=== PATIENT | male | born 1970 | race Caucasian/White ===

== ENCOUNTER 2019-12-26 09:09 | Outpatient (CLI) | payer OTHER, SELFPAY ==
--- NOTE | 2019-12-26 09:30 | USCV_ITS ---
Gaudencio Oneal Age: 49 Gender: M : 1970 Exam Date: 12/26/2019 09:24 Ordering Phys: Al Maria MD ([email or web address]) Technologist: Elva Jiang [place] [facility] [place]: Ascending AA BP: / HR: 48 Rhythm: Sinus Technical Quality: Adequate MEASUREMENTS (Male / Female) Normal Values 2D ECHO LV Diastolic Diameter PLAX 5.2 cm 4.2 - 5.9 / 3.9 - 5.3 cm LV Systolic Diameter PLAX 3.4 cm LV Chamber Size 4.3 cm IVS Diastolic Thickness 1.6 cm 0.6 - 1.0 / 0.6 - 0.9 cm IVS Systolic Thickness 1.9 cm LVPW Diastolic Thickness 1.1 cm 0.6 - 1.0 / 0.6 - 0.9 cm LVPW Systolic Thickness 2.1 cm RV Chamber Size 2.9 cm LVOT Diameter 2.1 cm LV Ejection Fraction 2D Teich 63.4 % LV Ejection Fraction MOD 2C 63.7 % LV Ejection Fraction 2C AL 63.9 % LA Diameter 4.9 cm LA Width 3.4 cm LA Height 4.5 cm RA Width 4.1 cm RA Height 4.4 cm Aorta at Sinotubular Diameter 3.9 cm M-MODE LV Diastolic Diameter MM 7.2 cm 4.2 - 5.9 / 3.9 - 5.3 cm LV Systolic Diameter MM 4.7 cm LV Ejection Fraction MM Teich 62.1 % IVS Diastolic Thickness MM 1.0 cm 0.6 - 1.0 / 0.6 - 0.9 cm IVS Systolic Thickness MM 1.8 cm LVPW Diastolic Thickness MM 1.4 cm 0.6 - 1.0 / 0.6 - 0.9 cm LVPW Systolic Thickness MM 2.1 cm RV Diastolic Diameter MM 1.7 cm Aortic Annulus Diameter 3.7 cm LA Ao Ratio MM 1.3 DOPPLER AV Peak Velocity 160.0 cm/s LVOT Peak Velocity 146.0 cm/s AV Area Cont Eq vti 3.5 cm squared AV Area Cont Eq pk 3.1 cm squared MV Area PHT 2.8 cm squared Mitral E to A Ratio 3.1 MV E' Velocity 13.0 cm/s Mitral E to MV E' Ratio 8.3 Mitral E to LV E' Lateral Ratio 6.9 Mitral E to LV E' Septal Ratio 10.5 TR Peak Velocity 278.5 cm/s TR Peak Gradient 31.0 mmHg TR Mean Velocity 200.1 cm/s TR Mean Gradient 17.4 mmHg TR Velocity Time Integral 87.5 cm TV Peak E Velocity 91.0 cm/s Right Atrial Pressure 8.0 mmHg Pulmonary Artery Systolic Pressu 39.0 mmHg PV Peak Velocity 63.0 cm/s RV Acceleration Time 0.2 s RV Ejection Time 0.4 s RV AcT/ET 0.5 FINDINGS Left Ventricle Normal left ventricular size, systolic function and wall thickness, with no regional wall motion abnormalities. Grade I/IV diastolic dysfunction (abnormal relaxation filling pattern), normal to mildly elevated filling pressures. Left ventricular ejection fraction is estimated at 60%. Right Ventricle Normal right ventricular size and systolic function. Mild pulmonary hypertension, RVSP 39 mmHg. Right Atrium Mildly increased right atrial size. Left Atrium Mildly increased left atrial size. Mitral Valve Structurally normal mitral valve. Mild mitral valve regurgitation. Aortic Valve Structurally normal trileaflet aortic valve. No aortic valve stenosis. [id number] aortic valve regurgitation. Tricuspid Valve Structurally normal tricuspid valve. Trace to mild tricuspid valve regurgitation. Pulmonic Valve Pulmonic valve not well visualized. Mild pulmonary valve regurgitation. Pericardium Normal pericardium without effusion. Aorta Ascending aorta 41.7 cm CONCLUSIONS Normal left ventricular size, systolic function and wall thickness, with no regional wall motion abnormalities. Grade I/IV diastolic dysfunction (abnormal relaxation filling pattern), normal to mildly elevated filling pressures. Left ventricular ejection fraction is estimated at 60%. Normal right ventricular size and systolic function. Mild pulmonary hypertension, RVSP 39 mmHg. Mildly increased right atrial size. Mildly increased left atrial size. Structurally normal trileaflet aortic valve. No aortic valve stenosis. [id number] aortic valve regurgitation. Dr. Al Maria MD (Electronically Signed) Final Date: 27 December 2019 08:26 S
== END 2019-12-26 09:10 | disposition home or self-care (01) ==
PROVIDERS: Family Provider Family Medicine; PCP Family Medicine; Visit Provider Internal Medicine Cardiovascular Disease
DX: I35.1 Nonrheumatic aortic (valve) insufficiency (principal); I27.20 Pulmonary hypertension, unspecified
CPT/HCPCS: 93306

== ENCOUNTER 2020-07-01 12:19 | Outpatient (CLI) | payer OTHER, SELFPAY ==
--- NOTE | 2020-07-01 12:45 | USCV_ITS ---
Gaudencio Oneal Age: 50 Gender: M : 1970 Exam Date: 07/01/2020 13:10 Ordering Phys: Al Maria MD ([email or web address]) Technologist: Primo Peck [place] [facility] [place] Indication: AI AAA OF ARCH BP: 134 / 88 HR: 57 Rhythm: Sinus Technical Quality: Good MEASUREMENTS (Male / Female) Normal Values 2D ECHO LV Diastolic Diameter PLAX 5.9 cm 4.2 - 5.9 / 3.9 - 5.3 cm LV Systolic Diameter PLAX 3.4 cm IVS Diastolic Thickness 1.2 cm 0.6 - 1.0 / 0.6 - 0.9 cm IVS Systolic Thickness 1.5 cm LVPW Diastolic Thickness 0.8 cm 0.6 - 1.0 / 0.6 - 0.9 cm LVPW Systolic Thickness 1.5 cm LVOT Diameter 2.0 cm LV Ejection Fraction 2D Teich 73.4 % LV Ejection Fraction MOD 2C 63.2 % LV Ejection Fraction 2C AL 62.6 % LA Diameter 4.3 cm LA Width 4.6 cm LA Height 6.0 cm RA Width 4.1 cm RA Height 5.5 cm Aorta at Sinotubular Diameter 1.3 cm M-MODE Aortic Annulus Diameter 4.7 cm LA Ao Ratio MM 0.9 DOPPLER AV Peak Velocity 155.0 cm/s LVOT Peak Velocity 125.0 cm/s AV Area Cont Eq vti 2.4 cm squared AV Area Cont Eq pk 2.5 cm squared MV Area PHT 5.0 cm squared Mitral E to A Ratio 1.3 MV E' Velocity 78.0 cm/s Mitral E to LV E' Septal Ratio 10.1 TR Peak Velocity 258.7 cm/s TR Peak Gradient 26.8 mmHg Right Atrial Pressure 3.0 mmHg Pulmonary Artery Systolic Pressu 29.8 mmHg FINDINGS Left Ventricle Normal left ventricular cavity size. Normal left ventricular systolic function. No regional wall motion abnormalities. Left ventricular ejection fraction is estimated at 55 %. Grade II/IV diastolic dysfunction, moderately elevated filling pressures. Right Ventricle The right ventricle is normal in size and function. Right Atrium The right atrium is normal in size. Left Atrium Moderately increased left atrial size. Mitral Valve Mildly thickened mitral valve. No mitral valve stenosis. Moderate mitral valve regurgitation. Aortic Valve Moderate aortic valve calcification. No aortic valve stenosis. Moderate to severe aortic valve regurgitation. Tricuspid Valve Mild tricuspid valve regurgitation. Pulmonic Valve Structurally normal pulmonic valve without significant stenosis. There is no pulmonic regurgitation. Pericardium Normal pericardium without effusion. Aorta Normal ascending aorta dimension. CONCLUSIONS 1-Normal left ventricular cavity size. Normal left ventricular systolic function. No regional wall motion abnormalities. Left ventricular ejection fraction is estimated at 55 %. Grade II/IV diastolic dysfunction, moderately elevated filling pressures. 2-Moderately increased left atrial size. 3-Moderate aortic valve calcification. No aortic valve stenosis. Moderate to severe aortic valve regurgitation. 4-Mildly thickened mitral valve. No mitral valve stenosis. Moderate mitral valve regurgitation. 5-Mild tricuspid valve regurgitation. 6-There is no pericardial effusion. 7-Pulmonary artery systolic pressure is within normal limits. 8-There is no pericardial effusion. 9-Right atrial pressure is around 5 mm of mercury. 10-When compared to the prior echocardiogram dated 27 December 2019 there appeared to be worsening of aortic regurgitation from moderate to moderate to severe now. Bryson Aguirre MD (Electronically Signed) Final Date: 01 July 2020 20:30 S
== END 2020-07-01 12:20 | disposition home or self-care (01) ==
LOC: RAD 12:29
PROVIDERS: PCP Family Medicine; Visit Provider Internal Medicine Cardiovascular Disease
DX: I77.810 Thoracic aortic ectasia (principal); I08.3 Combined rheumatic disorders of mitral, aortic and tricuspid valves
CPT/HCPCS: 93306

== ENCOUNTER 2020-08-14 11:08 | Outpatient (CLI) | payer OTHER, SELFPAY ==
--- NOTE | 2020-08-14 11:16 | CT_ITS ---
WS: [id number] CTA THORACIC TECHNIQUE: Contrast enhanced CTA of the thoracic aorta with coronal and sagittal reformatted images a nd maximum intensity projection (MIP) images. CLINICAL INFORMATION: Aortic root aneurysm COMPARISON: None. DLP: 1406.[address] scans at [facility] use at least one of these dose optimization techniques: automat ed exposure control; mA and/or kV adjustment per patient size (includes targeted exams where dose is matched to clinical indication); or iterative reconstruction. FINDINGS: Ascending thoracic aorta measures 3.9 CM. Aortic root measures 3.3 CM. Normal aortic arch and descend ing thoracic aorta. Proximal main pulmonary arteries are normal. No mediastinal or hilar lymphadenopathy. No axillary lym phadenopathy. Mild chronic emphysematous changes. No acute pulmonary infiltrates. Patchy fibrotic opa cities in right upper lobe laterally. Focal irregular opacity right lower lobe laterally measuring 6. 6 mm. Subpleural nodularity in the right lower lobe. No focal pneumonia or pleural fluid. Adrenal glands are normal. Diffuse fatty infiltration of the liver. Small low-attenuation lesions in both hepatic lobes partially visualized nonspecific but likely represent hepatic cysts. Postoperativ e changes at the GE junction. CT/CT angio chest [id number] IMPRESSION: 1. Normal caliber aortic root and ascending thoracic aorta. Aortic root measur es 3.3 cm 2. Normal caliber descending thoracic aorta. 3. Mild chronic emphysematous changes. Slightly spiculated opacity right lower lobe laterally measuring 6.6 mm. Recommend 6 month follow-up. 4. Subpleural fibrosis in the right upper lobe laterally. 5. No acute pulmonary infiltrates. 6. No mediastinal or hilar lymphadenopathy. 7. 4 small low-attenuation lesions in the liver partially visualized not defin itively characterize likely represent hepatic cysts. This can be followed up [facility].
[2020-08-14] MEDS: iohexol 350 mg/mL 100 mL Btl IV (11:46)
== END 2020-08-14 11:09 | disposition home or self-care (01) ==
LOC: RADWPI 11:13
PROVIDERS: PCP Family Medicine; Visit Provider Internal Medicine
DX: I71.4 Abdominal aortic aneurysm, without rupture (principal); K76.9 Liver disease, unspecified; J84.10 Pulmonary fibrosis, unspecified
CPT/HCPCS: 71275; Q9967

== ENCOUNTER 2020-09-16 07:08 | Outpatient (CLI) | payer OTHER, SELFPAY ==
--- NOTE | 2020-09-16 07:22 | ECG_ITS ---
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 Interpretive Statements NAME OF STUDY: LEXISCAN SESTAMIBI STRESS TEST INDICATION: [Chest Pain; Shortness of Breath] Procedure: At the baseline, the blood pressure was 166/91 mmHg,with a heart rate of 57 bpm. The electrocardiogram showed a sinus bradycardia, normal axis with normal ST and T's. The Lexiscan was infused over a duration of 20 seconds. A total of 0.4 mg of Lexiscan was infused. The stress phase was continued for a total of 5 minutes. Heart rate at the end of stress phase was 69 bpm, with a blood pressure of 177/97 mmHg. The EKG at the peak infusion revealed sinus rhythm with no significant ST-T wave changes. Sestamibi was injected 20 seconds after Lexiscan infusion. Blood pressure at the end of recovery phase was 181/99 mmHg, with a heart rate of 66 bpm. Conclusion: 1. Normal EKG response to Lexiscan infusion. 2. No Lexiscan induced chest pain or cardiac arrhythmia. 3. Normal blood pressure and heart rate response. 4. Sestamibi/sestamibi perfusion scan pending; see separate report. Electronically Signed On 09-20-2020 10:26:56 BOOM MASTER by Conrad Mcdonnell M.D. [email or web address]
--- NOTE | 2020-09-16 07:23 | NMCV_ITS ---
NM dago perf SPECT r/s* [id number] Gaudencio Oneal Age: 50 Gender: M : 1970 Exam Date: 09/16/2020 07:23 Ordering Phys: Conrad Mcdonnell M.D ([email or web address]) Technologist: MELANIE Pate Exam Location: [facility] Indications: SHORTNESS OF BREATH STRESS TEST Please see separate stress test report in [facility] for full findings IMAGE PROTOCOL Rest/Stress 1 Lexiscan Day Radiopharmaceutical Dose (mCi) Administration Site Administered by Rest: Tc-99m 10.7 IV MELANIE Pate Sestamibi Stress:Tc-99m 32.4 IV MELANIE Judd Sestamibi Rest: 16-Sep-2020 60 Discovery 630 Stress: 16-Sep-2020 30 Discovery 630 0.4mg Lexiscan. Images obtained in supine and prone position. SPECT RESULTS Technical Quality: Excellent Raw Data Analysis: Normal Image Corrections: No attenuation or motion correction applied Summed Stress Score: 1 Summed Rest Score: 0 Summed Difference Score: 1 PERFUSION FINDINGS Small sized myocardial perfusion defect is seen in apical inferior wall. No significant area of ischemia. FUNCTIONAL RESULTS (calculated via Gated SPECT) Stress Image LV EF (%): 55 Stress EDV (mL):210 TID: 0.96 Stress ESV (mL):95 FUNCTIONAL FINDINGS: LV systolic function is normal with EF of 55%. IMPRESSIONS 1. There is a small in size partially reversible perfusion defect in apical inferior wall. No significant area of ischemia seen. 2. The systolic function is normal with EF of 45%. Conrad Mcdonnell MD (Electronically Signed) Final Date: 22 September 2020 13:18 S
[2020-09-16 07:33] VITALS: BMI 37.9
[2020-09-16] MEDS: regadenoson 0.4 Mg/5 ml Syringe IVP (09:52)
[2020-09-16 10:07] VITALS: BP 181/99; PULSE 67
== END 2020-09-16 07:09 | disposition home or self-care (01) ==
LOC: RAD 07:15 → CDL 07:22
PROVIDERS: PCP Family Medicine; Visit Provider Internal Medicine
DX: R06.02 Shortness of breath (principal); I35.1 Nonrheumatic aortic (valve) insufficiency; R07.9 Chest pain, unspecified
CPT/HCPCS: 78452; 93017; A9500; J2785

== ENCOUNTER 2020-12-10 09:11 | Day surgery (SDC) | payer OTHER, SELFPAY ==
[2020-12-10] VITALS (16 sets, daily range): BP systolic 139–177; BP diastolic 78–98; PULSE 59–91; RESP 15–26; TEMP 36.9; O2SAT 93–97; BMI 39.6
--- NOTE | 2020-12-10 10:00 | XACV_ITS ---
Ht: 170 cm Wt: 115 kg BSA: 2.38 m2 Gender: Male : 1970 Any Known Allergies: Other Exam Priority: Routine Procedure(s): Procedure Description: Diagnostic procedure Procedure Description: Left Heart Catheterization Procedure Description: Right Heart Catheterization Diagnostic Cath Status: Elective Diagnostic Findings * No significant disease noted in the Left Main, LAD, Circumflex, or RCA coronary arteries. Left main artery: Short vessel. Has no significant disease LAD: Gives rise to a moderate-sized diagonal artery. No significant disease is noted in LAD and the diagonal artery Left circumflex artery: Patent RCA: Patent. No significant disease is noted. . * Aortic root angiogram shows 3 + aortic regurgitation consistent with moderate to severe aortic regurgitation. * Right heart cath findings: RA pressure: 21/19(17) millimeters of mercury RV pressure: 43/9(16) millimeters mercury PA pressure: 44/23(30) millimeters of mercury Wedge pressure: 26/26(24) millimeters of mercury Mean aortic valve gradient 13 mmHg, peak to peak gradient is 11 mmHg . * Coronary angiography shows right dominance. Conclusions 1. Aortic root angiogram showed 3+ aortic regurgitation. Consistent with moderate to severe aortic regurgitation. 2. Elevated right and left sided cardiac pressures. 3. Mildly elevated mean aortic valve gradient of 13mmHg and peak to peak gradient of 11mmHg. 4. No significant disease noted in the Left Main, LAD, Circumflex, or RCA coronary arteries. Recommendations * Patient following up with [facility] surgery for evaluation regarding need for aortic valve replacement. * Consider starting diuretics as cardiac pressures are elevated. * Outpatient cardiology follow up. Diagnostic RX Recommendation: medical therapy and/or counseling Anticoagulation: Heparin Pressures Phase:Rest AO : 147 / 76 ( 113 ) @ 6:34:00 AM 155 / 72 ( 114 ) @ 6:34:00 AM LV : 165 / 0 / @ 6:33:00 AM 165 / 0 / @ 6:33:00 AM 160 / 0 / @ 6:34:00 AM 159 / 0 / @ 6:34:00 AM RV : 43 / 9 / @ 6:22:00 AM PA : 44 / 23 ( 30 ) @ 6:21:00 AM RA : a wave = v wave = mean = 17 @ 6:22:00 AM O2 Content Phase:Rest PA : O2 Content O2: 68.2 @ 6:34:00 AM Saturations Phase:Rest AO : 94 @ 6:34:00 AM PA : 68 @ 6:34:00 AM Valves Phase:DefaultPhase AV : 11.0 @ 11:44:06 AM 11.0 @ 11:44:06 AM AV Mean Gradient: 13.0 @ 11:44:06 AM Clinical Evaluation EBL: 5mL-10mL Procedural Details Procedure Consent Obtained. Admit Source: Out Patient. Pre-Procedure Time Out. Identified patient by full name and date of as verbalized by the patient/guarantor. Does the consent match the physician's order: Yes. Accurate & Complete Informed Consent: Yes. Inpatient/Outpatient History & Physical on Chart: Yes. If H&P is completed, is and addenduem needed: N/A; If yes, is the addendum complete: N/A. Visualize and Verify Site with Patient/Guarantor: N/A. Relevant Radiology Images available: N/A. Pre-op teaching completed and patient verbalized understanding. The risks, benefits, and alternatives of sedation and/or procedure were discussed by physician. The patient agrees to continue. Procedure started. [facility] Clinical Fraility Score: 3: Managing Well. De Icer Finisher Indications: Valvular Disease. Chest Pain Symptom Assessment: Atypical Angina. Cardiovascular Instability: No. Correct patient, site and procedure confirmed by cath team. PERRLA. Strong, equal hand systems planner bilaterally. Lungs clear x 5 lobes. IV Site on Arrival: 18 gauge in the right anticubital. IV Site on Arrival: 20 gauge in the left anticubital. Pre Procedural Pulses: bilateral dorsalis pedis was 3+. Pre Procedural Pulses: right posterior tibial was 3+. Pre Procedural Pulses: left posterior tibial was 1+. Pre Procedural Pulses: bilateral radial was 3+. Oxygen started at 2liters/min via nasal canula. bilateral groins was prepped with chloroprep then draped in the usual sterile fashion. right radial was prepped with chloroprep then draped in the usual sterile fashion. Baseline sample Acquired. HR: 61 BPM. Physician notified. Physician arrived. Physician scrubbed in. Immediate Pre-Procedure Time Out. Correct Patient: Yes; Correct Procedure: Yes; Correct Site: Yes; Correct Patient Position: Yes; Correct Supplies: Yes; Dried Flammable Prep: Yes; Blood Products Available: N/A;. Lidocaine 1% infiltrated to the right radial. using Ultra sound machine to help gain access. Arterial access obtained. wire in venous access. Venous access obtained. Brooklyn-Nick MON catheter inserted. Brooklyn-Nick out. A 5 irish TIG catheter in over wire. Multiple views taken of left coronary artery. Catheter redirected to the RCA. Catheter out. A 5 irish Angled Pig catheter in over wire. EDP Sample taken: LV 165/0,20; HR: 66 BPM; SpO2: 94%. Pullback taken: LV 159/-1,20; AO 147/76(113); Mean: 13mmHg, Peak to Peak: 11mmHg, SEP: 21sec/min; HR: 66 BPM; SpO2: 94%. LV gram performed in LIDIA @ 18 mL/second for a total of 36 mL. catheter out. TR band placed. Hemostasis obtained. Sheath(s) removed and manual pressure held until hemostasis was achieved. Sterile 4x4 and Op-site applied to the puncture site. No oozing or hematoma noted. Post sheath removal instructions were given and the patient verbalized understanding. PERRLA. Strong, equal hand systems planner bilaterally. No VTE prophylaxis required. Medication's Wasted: Heparin = 1000 units. Medication's Wasted: Lidocaine 1% = 16 mL. Medication's Wasted: Nitro = 49.8 mg. Total IV fluids: 35.7 mL. Contrast type used: Omnipaque 300 mgI/mL, 500 mL bottle. Post-op diagnosis: non obstructive CAD, severe aortic regurgitation. Complications: none. Contrast Material : Omnipaque 139 ml. A Manual Compression was successful obtaining hemostatsis at the Right Brachial Vein insertion site. A TR Band was successful obtaining hemostatsis at the Right Radial artery insertion site. Estimated blood loss: 5mL-10mL. Procedure completed. Patient transferred by wheelchair to 1st floor. Vital chart was stopped. Access Site Site: Right Radial artery Sheath Size: 6 Fr Hemostasis Method: TR Band Hemostasis Success: Successful Site: Right Brachial Vein Sheath Size: 6 Fr Hemostasis Method: Manual Compression Hemostasis Success: Successful Procedure Medications Start: 11:03 AM Stop: 11:03 AM Medication: Versed Amount: 1 mg Route: I.V. Start: 11:03 AM Stop: 11:03 AM Medication: Fentanyl Amount: 50 mcg Route: I.V. Start: 11:06 AM Stop: 11:06 AM Medication: Versed Amount: 1 mg Route: I.V. Start: 11:06 AM Stop: 11:06 AM Medication: Fentanyl Amount: 50 mcg Route: I.V. Start: 11:17 AM Stop: 11:17 AM Medication: Versed Amount: 1 mg Route: I.V. Start: 11:23 AM Stop: 11:23 AM Medication: Nitrogylcerin Amount: 200 mcg Route: I.A. Start: 11:24 AM Stop: 11:24 AM Medication: Heparin Amount: 5000 units Route: I.V. Start: 11:29 AM Stop: 11:29 AM Medication: Versed Amount: 1 mg Route: I.V. I, the attending physician, have reviewed and verified all procedure medications. Yes, all medications given per verbal order History/Risk Factors Hypertension: Yes Dyslipidemia: Yes Myocardial Infarction (IN): Yes Tobacco Use: Never Report Signatures Finalized by Conrad Mcdonnell MD on 12/24/2020 04:56 PM
[2020-12-10] MEDS: diphenhydrAMINE 50 mg Capsule PO (10:01)
[2020-12-10 10:07] LABS: Basophils % 0.7 %; Eosinophils # 0.2 10^3/uL (0.0-0.8); Eosinophils % 2.8 %; Hematocrit 46.8 % (42.0-52.0); Hemoglobin 14.5 g/dL (11.7-16.6); Lymphocytes # 1.3 10^3/uL (0.8-4.8); Lymphocytes % 24.1 %; Mean Corpuscular Hemoglobin 24.8 pg (28.0-34.0); Mean Corpuscular Volume 80.1 fL (80-94); Mean Platelet Volume 11.5 fL (7.4-10.4); Monocytes # 1.1 10^3/uL (0.2-0.9); Neutrophils # 2.81 10^3/uL (1.8-7.7); Neutrophils % 52.2 %; Nucleated Red Blood Cells % 0 %; Platelet Count 142 10^3/cmm (130-400); Red Blood Count 5.84 10^6/uL (4.1-5.3); Red Cell Distribution Width 13.4 % (12.1-15.1); White Blood Count 5.4 10^3/uL (4.0-10.0)
--- NOTE | 2020-12-10 10:24 | W.PM.OPSFHP ---
Same Day Surgery H&P Indication for Procedure/HPI DATE OF PROCEDURE: December 10, 2020 CHIEF COMPLAINT/INDICATIONFOR SURGICAL PROCEDURE: Severe aortic regurgitation/ pre aortic valve replacement PREOP DIAGNOSIS: Severe aortic regurgitation/ Pre aortic valve replacement PLANNED PROCEDRUE: Operation Date: 12/10/20 10:00 Proposed Procedures p Cardiac Catheterization 28283 I35.1(Bilateral) - Conrad Mcdonnell M.D Right heart cath+Left heart cath 50-year-old man with past medical history of nonobstructive coronary artery disease, renal cell carcinoma, PSVT, old myocardial infarction, hypertension, ascending aortic dilatation and aortic regurgitation has been having severe shortness of breath recently. Any physical activity makes him get out of breath. Aortic regurgitation is progressive and appears severe now. Patient has been seeing CT surgery in the [facility] for possible aortic valve replacement. Today plan is for right and left heart cath as a preop for aortic valve replacement. ROS CONSTITUTIONAL: No fever chills weight loss or gain or night sweats. [] HEENT: Normocephalic, atraumatic.[] RESPIRATORY: No cough, sputum, hemoptysis or wheezing.[] CARDIOVASCULAR: has shortness of breath, no chest pain, PND, orthopnea, lower extremity edema, presyncope or syncope. [] GI: no nausea vomiting diarrhea. [] YARDAGE TUFTING MACHINE OPERATOR: No numbness, tingling, weakness or loss of function in any part of the body. [] MUSCULOSKELETAL: No knee or joint pain or rashes. [] Medications/Allergies* Home Medications Medication Instructions Recorded Confirmed Type albuterol sulfate 90 mcg/actuation 2 inh INHALATION Q6H PRN 12/18/19 12/10/20 History breath activated powder inhaler aspirin 81 mg tablet,delayed 81 mg PO DAILY 12/18/19 12/10/20 History release atenolol 100 mg tablet 100 mg PO DAILY 12/18/19 12/10/20 History atorvastatin 10 mg tablet 10 mg PO DAILY 12/18/19 12/10/20 History diltiazem HCl 240 mg capsule,24 240 mg PO BID cap 12/18/19 12/10/20 History hr,extended release doxazosin 2 mg tablet 2 mg PO DAILY 12/18/19 12/10/20 History hydralazine 50 mg tablet 50 mg PO TID 12/18/19 12/10/20 History nitroglycerin 0.4 mg sublingual 0.4 mg SUBLINGUAL Q5M PRN 12/18/19 12/10/20 History tablet trazodone 100 mg tablet 100 mg PO DAILY 12/18/19 12/10/20 History azelastine 137 mcg-fluticasone 50 1 spray INTRANASAL BID 06/27/20 12/10/20 History mcg spray,susp-NaCl 0.9% spray nasal ferrous sulfate 325 mg (65 mg 325 mg PO BID 06/27/20 12/10/20 History iron) tablet fluticasone propionate 50 2 spray INTRANASAL DAILY 06/27/20 12/10/20 History mcg/actuation nasal spray,suspension levocetirizine 5 mg tablet 5 mg PO DAILY 06/27/20 12/10/20 History lisinopril 20 1 tab PO BID 06/27/20 12/10/20 History mg-hydrochlorothiazide 25 mg tablet omeprazole 40 mg capsule,delayed 40 mg PO DAILY 06/27/20 12/10/20 History release Allergies/Adverse Reactions Allergy/AdvReac Type Severity Reaction Status Date / Time Anesthetics - Tabitha Type- Allergy Severe ALGY-Anaphy Verified 10/09/20 14:15 Parabens laxis amoxicillin Allergy Intermediate Unknown Verified 10/09/20 14:15 Current Medications: Generic Name Dose Route Start Last Admin Trade Name Freq PRN Reason Stop Dose Admin Sodium Chloride 1,000 mls @ 50 mls/hr 12/10/20 09:00 12/10/20 10:01 Sodium Chloride 0.9% IV 12/11/20 04:59 Not Given .Q20H ONE Pertinent History/Comorbid Conditions* Medical History (Updated 12/18/19 @ 13:05 by Al Maria MD) Aortic insufficiency Ascending aorta dilatation ASHD (arteriosclerotic heart disease) HTN (hypertension) Hyperlipidemia TISHA (obstructive sleep apnea) PSVT (paroxysmal supraventricular tachycardia) Renal cell carcinoma Surgical History (Updated 12/18/19 @ 13:05 by Al Maria MD) History of partial nephrectomy Family History (Updated 12/18/19 @ 12:46 by Roberta Lai RN) CAD (coronary artery disease) Hypertension Mother Social History Smoking and tobacco status: never smoked Alcohol intake: current Alcohol intake frequency: few times a month Alcohol type: wine Household members: spouse Marital status: service: No Current occupational status: retired Pertinent Exam Findings alert, oriented x 3, clear to auscultation bilaterally and regular rate & rhythm GENERAL: Patient is alert, awake and oriented x3. [] NECK: No jugular vein distension. [] HEENT: No cyanosis. No icterus. No pallor. [] HEART: Regular S1 and S2. No murmur, rub or gallop. [] LUNGS: Clear to auscultate bilaterally. [] ABDOMEN: Soft, nontender and nondistended. Positive bowel sounds. No guarding, rebound or tenderness. [] CENTRAL NERVOUS SYSTEM: Grossly nonfocal. [] EXTREMITIES: Lower extremities with 1+ edema bilaterally. Pulses palpable in the lower extremities, both dorsalis pedis and posterior tibial. [] Conscious Sedation Assessment PATIENT ASSESSED PRIOR TO SEDATION, WITH NO CHANGE NOTED: Yes AIRWAY EVAL/ANESTHESIA PLAN: normal airway, see other exam findings, ASA III, Risks, benefits & alternatives of sedation and/or procedure discussed and Patient agrees to continue as planned Recommendations Surgery/Procedure today (Right heart cath+left heart cath with possible percutaneus coronary intervention) Coding Level of Care Code Acute Client Relation Specialist for Maida Horowitz
[2020-12-10 10:38] LABS: Blood Urea Nitrogen 18 mg/dL (6-20); Calcium 8.9 mg/dL (8.5-10.5); Carbon Dioxide 25 mmol/L (22-29); Chloride 105 mmol/L (98-107); Glomerular Filtration Rate 101.5 mL/min (90-130); Glucose 103 mg/dL (65-115); Osmolality Calculated 288 mOsm/kg (285-295); Sodium 138 mmol/L (136-145)
[2020-12-10 10:43] LABS: SARS Covid-2 Antigen Negative (Negative)
--- NOTE | 2020-12-10 14:46 | PC.NURSE ---
UPON PATIENT'S ARRIVAL TO THE FLOOR, WAS GIVEN IN REPORT THAT A SMALL KNOT HAD APPEARED ON THE PATIENT'S WRIST PROXIMAL TO THE TR BAND. PER CINTHIA LINDQUIST AND CINTHIA LOVE A SECOND TR BAND WAS PLACED OVER THE SITE.
== END 2020-12-10 17:41 | disposition home or self-care (01) ==
LOC: CCL 09:21 → CSU 12:02
PROVIDERS: PCP Family Medicine; Visit Provider Internal Medicine
PROC: (CPT 93460; principal; 2020-12-10 10:00)
DX: I35.1 Nonrheumatic aortic (valve) insufficiency (principal); I25.2 Old myocardial infarction; I25.10 Atherosclerotic heart disease of native coronary artery without angina pectoris; C64.9 Malignant neoplasm of unspecified kidney, except renal pelvis; I10 Essential (primary) hypertension; E78.5 Hyperlipidemia, unspecified; G47.33 Obstructive sleep apnea (adult) (pediatric); Z82.49 Family history of ischemic heart disease and other diseases of the circulatory system
CPT/HCPCS: 93460; 36415; 80048; 85025; 87426; C1751; C1769; C1887; C1894; J1644; J2250; J3010; J3490; J7030; Q0163; Q9967

== ENCOUNTER → 2020-12-17 14:20 | Outpatient (BNVA) | payer OTHER, SELFPAY | PROVIDERS: PCP Family Medicine; Visit Provider Nurse Practitioner Family | DX: I35.1 Nonrheumatic aortic (valve) insufficiency (principal) | CPT/HCPCS: 80048 ==

== ENCOUNTER → 2023-03-02 09:11 | Outpatient (BNVA) | payer OTHER, SELFPAY | PROVIDERS: PCP Family Medicine; Referring Provider Family Medicine; Visit Provider Specialist | DX: S59.902A Unspecified injury of left elbow, initial encounter (principal); X50.9XXA Other and unspecified overexertion or strenuous movements or postures, initial encounter | CPT/HCPCS: 73080; 73090 ==

== ENCOUNTER 2023-03-18 11:09 | Outpatient (CLI) | payer OTHER, SELFPAY ==
--- NOTE | 2023-03-18 11:45 | MRR_ITS ---
PROCEDURE INFORMATION: Exam: MR Left Upper Extremity Joint Without Contrast; Elbow Exam date and time: 03/18/2023 12:27 PM Age: 53 years old Clinical indication: Injury or trauma; Sprain or strain; Injury details: Pain in the left elbow and down arm to the wrist. Pulling injury 1 month ago, but the tendon is very sore where i placed the almond marker. ; Additional info: Elbow injury TECHNIQUE: Imaging protocol: Magnetic resonance imaging of the left upper extremity without contrast. Exam focused on the elbow. COMPARISON: CR XR elbow LT min 3V* [id number] 03/02/2023 9:15 AM FINDINGS: Bones/joints: Small elbow joint effusion. No fracture. No malalignment. No destructive bony process identified. Ulnar (medial) collateral ligament: Unremarkable. No tear. Radial collateral ligament of the elbow: Unremarkable. No tear. Annular ligament of the radius: Unremarkable. No tear. Tendon of the biceps brachii: High-grade near complete insertional tear of the distal biceps tendon, with a small amount of the tendon remaining attached to the biceps tuberosity (series 801, images 8-13; series 601, images 25-21; series 801, images 8-13). Tendon of the brachialis: Unremarkable. No tear. Triceps tendon: Unremarkable. No tear. Common flexor tendon: Unremarkable. No tear. Common extensor tendon: Unremarkable. No tear. Soft tissues: Fascial plane edema adjacent to the distal bicipital musculotendinous junction and bicipital tendon. Antecubital fascial plane soft tissue edema. MR/MR elbow LT wo con* [id number] IMPRESSION: High-grade distal biceps tendon insertion tear.
== END 2023-03-18 11:10 | disposition home or self-care (01) ==
PROVIDERS: PCP Family Medicine; Visit Provider Specialist
DX: S46.222A Laceration of muscle, fascia and tendon of other parts of biceps, left arm, initial encounter (principal); X58.XXXA Exposure to other specified factors, initial encounter
CPT/HCPCS: 73221